=== PATIENT | male | born 2005 | race Two or more races ===

== ENCOUNTER 2024-09-21 22:58 | Emergency (ER) | payer OTHER ==
[~2024-09-21] VITALS: Ht 182.9 cm; Wt 74.8 kg
[2024-09-22] MEDS ORDERED: KETOROLAC TROMETHAMINE 10 MG TABLET PO STA (00:26)
[2024-09-22] MEDS ORDERED: KETOROLAC TROMETHAMINE 10 MG TABLET PO ONE (00:29)
[2024-09-22] MEDS ORDERED: CEPHALEXIN500 MG PO (01:31)
== END 2024-09-22 01:33 ==
LOC: ER 23:19
DX: S80.212A Abrasion, left knee, initial encounter (principal); X58.XXXA Exposure to other specified factors, initial encounter; Y93.89 Activity, other specified; Y92.89 Other specified places as the place of occurrence of the external cause; J45.909 Unspecified asthma, uncomplicated